=== PATIENT | male | born 1960 | race Caucasian/White ===

== ENCOUNTER → 2021-11-04 | Day surgery (SDC) | payer MEDICARE ==
[~2021-11-04] VITALS: Ht 182.9 cm; Wt 97.1 kg
[~2021-11-04] MED LIST: ATARAX25 MG PO; BISOPROLOL FUMAR5 MG PO; COLESTID 1GM TAB1 GM PO; NEXIUM40 MG PO; PHAZYME250 MG PO; PROAIR HFA8.5 GM INH; ZETIA10 MG PO
[2021-11-04 08:22] LABS: HCT 42.8 % (42.0-52.0); HGB 14.7 g/dl (13.2-18.0); MCH 29.3 pg (25.0-31.0); MCHC 34.3 g/dL (32.0-36.0); MCV 85.4 fL (78.0-100.0); MPV 9.7 fL (6.0-9.5); RBC 5.01 M/uL (4.70-6.00); RDW 14.4 % (11.5-14.0); WBC 7.1 K/uL (4.0-10.5)
[2021-11-04 08:46] LABS: BILIRUBIN - TOTAL 0.5 mg/dL (0.2-1.0); BUN/CREAT RATIO (CALC) 14.4 RATIO; CREATININE 1.18 mg/dL (0.67-1.17); GLOBULIN (CALCULATION) 3.1 g/dL; POTASSIUM 4.5 mmol/L (3.5-5.1); TOTAL PROTEIN 7.1 g/dL (6.4-8.2)
== END | disposition home or self-care (01) ==
LOC: FAS 07:36
PROVIDERS: Surgery
DX: Z12.11 Encounter for screening for malignant neoplasm of colon (principal); K63.5 Polyp of colon; J44.9 Chronic obstructive pulmonary disease, unspecified; I10 Essential (primary) hypertension; E78.5 Hyperlipidemia, unspecified; K21.9 Gastro-esophageal reflux disease without esophagitis; E03.9 Hypothyroidism, unspecified; Z90.49 Acquired absence of other specified parts of digestive tract; Z87.891 Personal history of nicotine dependence; Z88.0 Allergy status to penicillin
CPT/HCPCS: 36415; 80053; J2704